=== PATIENT | female | born 1935 | race Caucasian/White ===

== ENCOUNTER 2017-02-01 08:13 | Inpatient (IN) ==
--- NOTE | 2017-02-01 08:43 | PROVIDER DOCUMENTATION ---
HPI-General Adult - General Stated Complaint: difficult breathing/cp Time Seen by Provider: 02/01/17 08:30 Source: patient, family Allergies/Adverse Reactions: Patient Allergies Allergy/AdvReac Type Severity Reaction Status Date / Time propofol Allergy Severe Unknown Verified 01/31/17 15:48 Home Medications: Home Medication List Medication Instructions Recorded Confirmed Last Taken Type Digoxin [Lanoxin] 125 microgm PO DAILY 01/23/13 01/31/17 01/31/17 08:30 History Insulin Lispro [Humalog] 1 unit SUBQ TID 01/23/13 01/31/17 01/31/17 08:30 History Levothyroxine [Synthroid] 125 microgm PO DAILY 01/23/13 01/31/17 01/31/17 08:30 History Potassium Chloride [Klor-Con M20] 20 meq PO DAILY 01/23/13 01/31/17 01/31/17 08: 30 History Aspirin 81 mg PO DAILY 02/22/13 01/31/17 01/31/17 08:30 History Losartan [Cozaar] 100 mg PO DAILY 02/22/13 01/31/17 01/31/17 08:30 History Warfarin [Coumadin] 4 mg PO QHS 02/22/13 01/31/17 01/30/17 21:30 History Mirtazapine [Remeron] 15 mg PO QHS 04/18/13 01/31/17 01/30/17 21:30 History Metoprolol [Lopressor] 100 mg PO DAILY 09/26/14 01/31/17 01/31/17 08:30 History Insulin Degludec [Tresiba 40 unit SQ HS 09/27/16 01/31/17 01/30/17 21:30 History Flextouch U-100] ROSUVAstatin [Crestor] 40 mg PO HS 10/05/16 01/31/17 01/30/17 21:30 History Furosemide [Lasix] 40 mg PO DAILY #0 tablet 10/09/16 01/31/17 01/31/17 08:30 Rx Alprazolam [Xanax] 0.25 mg PO [id number] 01/29/17 01/31/17 01/31/17 08:30 History Nitrofurantoin Monohyd/M-Cryst 100 mg PO BID #20 capsule 01/29/17 01/31/1701/31 08:30 Rx [Macrobid 100 mg Capsule] - History of Present Illness -Gen Adult Nature of Presenting Problems: presents with c/ feeling anxious, unable to rest. She was up and down all night , did not sleep. EMS was called for that. She had brief CP and SOB in the ambulance, but this has resolved Pt was seen here yest for anxiety, CP, was eval , and referred back to her PCP. She was also seen here Wednesday for similar. She was recently taken off her zoloft, and told to take prn Xanax Location of Pain/Injury: reports: none Pain Radiation: reports: no radiation Quality of Pain: reports: none Onset/Duration: reports: 24 hours ago Timing: reports: still present Context/Activities at Onset: reports: none Modifying Factors: improves with: nothing Associated Symptoms: reports: shortness of breath (see HPI). denies: fever/ chills Similar Symptoms Previously?: Yes Recently seen or treated by another doctor?: Yes Review of Systems - Adult - REVIEW OF SYSTEMS - ADULT Constitutional: reports: see HPI Eyes: reports: no symptoms reported Ears, Nose, Mouth & Throat: reports: no symptoms reported Cardiovascular: reports: see HPI, palpitations (occ) Respiratory: reports: see HPI Gastrointestinal: reports: no symptoms reported Genitourinary: reports: no symptoms reported Musculoskeletal: reports: no symptoms reported Integumentary: reports: no symptoms reported Neurological: reports: no symptoms reported Psychiatric: reports: see HPI Endocrine: reports: no symptoms reported Hematologic/Lymphatic: reports: no symptoms reported Allergic/Immunologic: reports: no symptoms reported Past History - Adult - PAST MEDICAL HISTORY-ADULT Review of Records: reports: Medications Reviewed Major Childhood Illnesses: reports: denies history Cardiovascular: reports: CAD, CHF, HTN, heart valve problem (aortic valve replacement), hyperlipidemia, pacemaker Respiratory: reports: denies history Gastrointestinal: reports: denies history Obstetrical/Gynecological: reports: denies history Genitourinary: reports: denies history Musculoskeletal: reports: denies history Neurological: reports: CVA Psychiatric: reports: depression Endocrine/Immune: reports: Diabetes, thyroid disorder (hypothyroid) Other Conditions: reports: denies history - PRIOR SURGERIES/PROCEDURES Surgical/Procedure History: reports: CABG, tonsillectomy, orthopedic (extremity ) (bilateral hip) - IMMUNIZATION STATUS Childhood Immunizations: See Nurse Assessment Flu Vaccine: See Nurse Assessment - FAMILY HISTORY Family History: reviewed, not pertinent - SOCIAL HISTORY Smoking: denies Physical Exam-General - PHYSICAL EXAM-ADULT Initial Vital Signs Reviewed: Yes - CONSTITUTIONAL General Appearance: appears well, alert, no apparent distress, anxious - EYES Eyes: PERRL/EOMI, pink conjunctivae - HEAD, EARS, NOSE, MOUTH & THROAT HENMT: normocephalic/atraumatic, moist mucous membranes, normal ENT inspection, pharynx normal - NECK Neck: full range of motion, supple - RESPIRATORY Respiratory: chest non-tender, lungs clear, normal breath sounds, no respiratory distress, no accessory muscle use - CARDIOVASCULAR Cardiovascular: normal peripheral pulses, regular rate, rhythm, no edema - GASTROINTESTINAL (ABDOMEN) Abdominal Exam: non tender, soft - MUSCULOSKELETAL Back Exam: normal inspection, no CVA tenderness, no vertebral tenderness Extremity: normal range of motion, non-tender, normal inspection Peripheral Pulses: radial (R): 4+, radial (L): 4+ - SKIN Integumentary: normal color, normal turgor, warm/dry - NEUROLOGIC Neurologic: director safety council II-XII nml as tested, grossly normal, no motor/sensory deficits - PSYCHIATRIC Psych/Mental Status: oriented x 3, anxious Progress - PLAN OF CARE/RESULTS Progress/Plan/Lab Results: Orders Category Date Time Status EKG [EKG] Stat Ther 02/01/17 08:36 Ordered - CONSULTS/PCP/HOSPITALIST Notification #1 *Consult/PCP/Hospitalist*: Weirich Time Discussed: 08:43 Consult Disposition: Will see in ED, Admit Departure - Departure Time of Disposition Decision: 08:46 DIAGNOSIS: Anxiety about health Disposition: ADMITTED INPATIENT 09 Certified Medical Emergency: Emergent Condition: Good - Critical Care Note This patient required my direct & personal management of CC.: No
[2017-02-01 09:00] LABS: MANUAL DIFF NEEDED? NO
[2017-02-01 09:09] LABS: BASO% 0.3 % (0.0-0.8); EOS# 0.05 X1000 (0.0-0.7); EOS% 0.4 % (0.0-10.0); HEMATOCRIT 34.3 % (37.0-47.0); HEMOGLOBIN 10.7 g/dL (12.0-16.0); IMM GRAN# 0.03 X1000 (0.0-0.04); IMM GRAN% 0.2 % (0.0-0.5); LYMPH# 0.84 X1000 (1.2-3.4); LYMPH% 6.6 % (20.5-51.1); MCHC 31.2 g/dL (33-37); MCV 83.3 FL (81-99); MONO# 1.08 X1000 (0.11-0.59); MONO% 8.5 % (1.7-9.3); MPV 12.5 FL (7.4-10.4); PLT 198 X1000 (130-400); RBC 4.12 XMIL (4.2-5.4)
[2017-02-01 09:17] LABS: PTT 39.8 Seconds (22.0-36.0)
[2017-02-01] MEDS ORDERED: XANAX XR PO ONE (09:17)
[2017-02-01] MEDS ORDERED: ZOLOFT PO ONE (09:17)
[2017-02-01 09:18] LABS: INR 2.54; PROTIME 28.3 Seconds (9.2-11.7)
[2017-02-01 09:21] LABS: CALCIUM 9.6 mg/dL (8.8-10.2); MAGNESIUM 1.9 mg/dL (1.5-2.7); POTASSIUM 4.7 mmol/L (3.5-5.1); TOTAL BILIRUBIN 0.62 mg/dL (0.20-1.00); TOTAL PROTEIN 7.9 g/dL (6.3-8.3)
--- NOTE | 2017-02-01 09:46 | EKG Report ---
Test Performed on : 02/01/2017 08:18:46 AM Test Reason : CP Blood Pressure : / mmHG Vent. Rate : 089 BPM Atrial Rate : 089 BPM P-R Int : 000 ms QRS Dur : 142 ms QT Int : 380 ms P-R-T Axes : 000 018 197 degrees QTc Int : 462 ms Ventricular-paced rhythm Abnormal ECG When compared with ECG of 28-OCT-2016 13:35, No significant change was found Unconfirmed Result
[2017-02-01] MEDS ORDERED: NS 1,000 ML IV ONE ×2 (10:50)
[2017-02-01] MEDS ORDERED: TYLENOL PO PRN (10:50)
[2017-02-01] MEDS ORDERED: ZOFRAN IV PRN (10:50)
[2017-02-01] MEDS: ROCEPHIN 1 GM/NS 1 GM/50 ML IVPB IV SCH (15:50)
--- NOTE | 2017-02-01 16:00 | EKG Report ---
Test Performed on : 02/01/2017 1:52:32 PM Test Reason : chest pain Blood Pressure : / mmHG Vent. Rate : 096 BPM Atrial Rate : 096 BPM P-R Int : 000 ms QRS Dur : 158 ms QT Int : 402 ms P-R-T Axes : 000 217 065 degrees QTc Int : 507 ms Ventricular-paced rhythm Biventricular pacemaker detected Abnormal ECG When compared with ECG of 01-FEB-2017 08:18, (Unconfirmed) Vent. rate has increased BY 7 BPM Confirmed by Mary SCHROEDER, Candido Hill ([id number]) on 02/03/2017 7:15:47 AM
[2017-02-01 16:35] LABS: ALLEN TEST YES; BE 0.9 mmoll (-3.0-3.0); BLOOD TYPE ARTERIAL; DRAW SITE R RADIAL; METHB 1.3 % (0.0-1.5); O2(CT) 14.6 mL/dL (15.0-23.0); PCO2(98.6) 46 mmHg (35-45); PO2(98.6) 84 mmHg (60-100); SAMPLE BLOOD; SAO2 98.1 % (95.0-100.0); THB 10.9 g/dL (11.5-17.4); pH(98.6) 7.37 (7.35-7.45)
[2017-02-01 16:36] LABS: MODALITY CANNULA
[2017-02-01] MEDS ORDERED: NS 1,000 ML ONE (16:46)
--- NOTE | 2017-02-01 17:31 | HISTORY AND PHYSICAL ---
CHIEF COMPLAINT: Chest pain. HISTORY OF PRESENT ILLNESS: This 81-year-old white female was seen in the office last week. She appeared to be oversedated and as a result, we removed a couple medications which we were using for emotional control. She has a history of pseudobulbar affect and as a result of chronically declining health she has become more and more anxious over time. We have clear documentation of her hyperventilating in the past as a result of her anxiety but felt we overshot the sandra with the medications. Over the weekend the patient was seen in the emergency room twice having called the ambulance due to shortness of breath and chest pain. She was evaluated in the emergency room twice and found to have no evidence of myocardial ischemia. She was diagnosed with acute anxiety and was sent home. She again returns today with chest pain, shortness of breath, crying spells, emotional lability and other more or less chronic issues. She is admitted for adjustment of her medication regimen. During 1 of her ER visits (this is the 3rd in less than a week) the patient was diagnosed with a UTI and started on medications for this. There has been no growth in that culture obtained on 01/29. PAST MEDICAL HISTORY: 1. Hypertension. 2. Class 4 congestive heart failure with preserved ejection fraction. 3. Chronic stable ischemic heart disease. 4. Pacemaker dependent history of atrial fibrillation. 5. History of aortic valve replacement. 6. Diabetes type 2. 7. Hypertension. 8. Hyperlipidemia. 9. Hypothyroidism. 10. History of CVA with pseudobulbar affect. 11. The patient has a history of 2 very intense prolonged hospitalizations for myocardial ischemia and mental status alteration. FAMILY HISTORY: Noncontributory. SOCIAL HISTORY: The patient is and lives with her . Unfortunately, he is chronically ill with pulmonary fibrosis and has a more and more difficult time managing her as time goes on. She does not use alcohol or tobacco. ALLERGIES: Propofol. REVIEW OF SYSTEMS: In speaking with the patient and her , he encouraged her to take alprazolam p.r.n. at home and she fought him at every turn in trying to take this. He states that she has been hallucinating at times. He states that she has had no other complaints, that her eating and drinking has been off for several days. They had given very little if any sliding scale insulin over that timeframe. He does not recall any fever or chills. There has not been overt shortness of breath except intermittently and usually accompanied by her being in a frantic state and her heart racing at that time. She states that she has chest pain off and on all of time. There were no GI complaints. There were no complaints. There were no other neurological issues other than the manifestations of pseudobulbar affect which are common with her and of late been more or less uncontrolled. PHYSICAL EXAMINATION: GENERAL: She is a well-developed, well-nourished, white female who is in no acute distress. She is not breathing rapidly at the time of my examination. She does make some statements which are not completely inappropriate but very much off the subject at times. HEENT: The sclerae are anicteric. Oral mucosa is dry but not parched. It is of normal coloration. NECK: There is no JVD present. LUNGS: The patient is generally clear. CARDIOVASCULAR: The patient is in a regular rhythm. There is no appreciable murmur or gallop. EXTREMITIES: No peripheral edema. ABDOMEN: Bowel sounds are present. She is nontender and nondistended. NEUROLOGIC: Cranial nerves appear to be intact. There do not appear to be any focal motor neurological deficits as she is moving her arms freely. ASSESSMENT AND PLAN: 1. I plan to reconfigured the patient's medications to better control her pseudobulbar affect and anxiety. I believe that this is primary driving factor behind her difficulty. We may just have to live with relative oversedation if that is what takes to keep her calm. 2. The patient's ischemic heart disease is known. We will continue to follow this. Labs were drawn on each of the hospitalizations and have again been drawn today to detect any evidence of myocardial ischemia. 3. Hypertension. We are aware. Will continue to monitor this. 4. Diabetes mellitus. We will do fingerstick blood sugars and continue the patient's Tresiba dose. We will add sliding scale insulin and try configure this to optimize her blood sugar control. 5. The patient has a history of diagnosed urinary tract infection although the culture was negative. I will plan to give her Rocephin until we can show that she has no other evidence of infection. cc: Candido Hernandez MD
[2017-02-01] MEDS ORDERED: ATIVAN IV PRN (18:41)
[2017-02-01] MEDS: HUMULIN R SUBQ SCH ×2 (18:56→20:51)
[2017-02-01] MEDS ORDERED: REMERON PO SCH (21:00)
[2017-02-01] MEDS ORDERED: LASIX IV ONE (21:29)
[2017-02-01] MEDS ORDERED: NITROGLYCERIN TOP ONE (21:29)
[2017-02-01] MEDS: MACROBID PO SCH (22:24)
[2017-02-01] MEDS: CRESTOR PO SCH (22:24)
[2017-02-01] MEDS: COUMADIN PO SCH (22:24)
[2017-02-01] MEDS: NON-FORMULARY BULK MED SUBQ SCH (22:29)
--- NOTE | 2017-02-02 01:14 | PROGRESS NOTE ---
DATE: 02/01/2017 HISTORY: Called in to see patient. Reported that she did not look very good, was not breathing very good. This is 8:30 p.m. An 81-year-old admitted apparently this morning by Dr. Hernandez. An 80-year-old discharged from the hospital back in 10/14/2016. She has been in the hospital a couple times recently for that. She was in the hospital on 09/30/2016. She had a heart catheterization. The previous episode she was short of breath, could hardly catch her breath, could hardly talk at that time. This time, she came in apparently with shortness of breath again and gasping to move air, marked dyspnea on exertion. PAST MEDICAL HISTORY: 1. Diabetes mellitus type 2. 2. Hypertension. 3. Hyperlipidemia. 4. Hypothyroidism. 5. Class IV congestive heart failure, with relatively preserved ejection fraction, I think ejection fraction around 40%. 6. Chronic, stable ischemic heart disease. She had a 3-vessel disease. 7. Pacemaker-dependent and history of atrial fibrillation. 8. Aortic valve replacement. She is on Coumadin. PHYSICAL EXAMINATION: Patient is labored to breathe, and there is a prolonged expiratory phase. Neck veins are distended. Difficult to hear the bases, but it sounds like rales in the bases. Abdomen is soft. Skin is warm and dry. LABORATORY STUDIES: On admission, white count 12,720, hematocrit 34, platelet count 198,000. Sodium 139, potassium 4.7, chloride 103, bicarb 24, BUN 21, creatinine 1.1. Blood sugars 228, and then 428. ProBNP 3207. EKG: There are 2 of them, both of them show biventricular paced rhythm. VITAL SIGNS: Blood pressure most recent was 125/77, but it has been 125-178 over 54-77. ASSESSMENT AND PLAN: 1. Increased work of breathing, diastolic heart failure, and systolic. ProBNP is not dramatically elevated. Clinically, appears to be having trouble moving air. I am going to move her to the unit. We will check some blood gases. We will give her a dose of Lasix. I will put an inch of nitro paste on her chest. 2. Three-vessel disease. Obviously, this could be ischemia, and it could be a supply-demand ischemia. Her troponin was less than 0.01. CPK was 30. 3. Patient with chronic renal insufficiency, aware. Appears to be stable as well. 4. Diabetes mellitus type 2. Sugars are bouncing around. We will keep her on a sliding scale. 5. I am going to check some blood gases. Her chest x-ray done yesterday showed a stable chest. Will have them repeat another chest x-ray portable. Will put an inch of nitro paste. Give her Lasix 40 mg, keep fluid at the same, and move her to the unit. 6. She is a full code. cc: MD Candido Victoria MD
--- NOTE | 2017-02-02 05:14 | EKG Report ---
Test Performed on : 02/01/2017 7:43:34 PM Test Reason : HR 120's on tele Blood Pressure : / mmHG Vent. Rate : 132 BPM Atrial Rate : 133 BPM P-R Int : 000 ms QRS Dur : 134 ms QT Int : 342 ms P-R-T Axes : 000 038 213 degrees QTc Int : 506 ms Ventricular-paced rhythm Abnormal ECG When compared with ECG of 01-FEB-2017 13:52, (Unconfirmed) Vent. rate has increased BY 36 BPM Confirmed by Candido Hernandez MD ([id number]) on 02/03/2017 7:16:02 AM
--- NOTE | 2017-02-02 06:20 | Diag Imaging Result Doc PS360 ---
EXAM: CHEST-PORTABLE HISTORY: SOB/CP TECHNIQUE: Portable COMPARISON: 01/31/2017. FINDINGS: Sternal wires are present. There is a left-sided pacemaker. The heart remains mildly prominent. Pulmonary edema has developed. No pleural effusions identified. IMPRESSION: Interval development of pulmonary edema. Electronically signed by Bernardino Gottlieb 02/02/2017 6:18 AM
[2017-02-02] MEDS: SYNTHROID PO SCH (06:25)
[2017-02-02] MEDS: HUMULIN R SUBQ SCH ×4 (06:26→21:49)
[2017-02-02] MEDS ORDERED: ZOLOFT PO SCH (09:00)
[2017-02-02] MEDS ORDERED: XANAX XR PO SCH (09:00)
[2017-02-02] MEDS ORDERED: LOPRESSOR PO SCH (09:00)
[2017-02-02] MEDS: LASIX PO SCH (09:07)
[2017-02-02] MEDS: COZAAR PO SCH (09:07)
[2017-02-02] MEDS: LANOXIN PO SCH (09:08)
[2017-02-02] MEDS: ASPIRIN PO SCH (09:08)
[2017-02-02] MEDS: KLOR-CON PO SCH (09:08)
[2017-02-02] MEDS: MACROBID PO SCH ×2 (09:12→21:46)
--- NOTE | 2017-02-02 09:46 | PROGRESS NOTE ---
DATE: 02/02/2017 SUBJECTIVE: The patient was moved to [facility] last night due to shortness of breath. She was given some nitro paste and some Lasix. This morning, the patient states that as soon as she moves, the shortness of breath starts all over again. At the time that she was telling me this, we were moving her about in the bed, and she did not seem overtly short of breath. Yesterday, when she was a little more short of breath, we got an ABG which did not show primary hyperventilation. It is noted that the patient did have some Ativan last night around 6:00 p.m. OBJECTIVE: Vital Signs: Temperature 97.2, pulse 66, respirations 16, BP 136/55. She is 100% saturated on what appears to be 4 L nasal cannula.Physical Examination: The patient is alert but confused. She seems to get disoriented during hospitalizations and, from past experience, this is about her baseline. Lungs are clear. Cardiovascular is regular at approximately 60 beats per minute at the time of my examination. Extremities show no peripheral edema. Oral mucosa is slightly dry. LABORATORIES: None. ASSESSMENT AND PLAN: 1. The patient's difficulties with heart disease, I think, are behind some of her shortness of breath. I think she has anginal equivalents and shortness of breath with exertion which are part of her class 4 heart failure with preserved systolic function. We will continue to try and optimize her medications so she can perform a little bit better. 2. The other grave issue which affects the patient is extreme anxiety and pseudobulbar affect. The addition of alprazolam XR has calmed her down, but she does seem to think and operate slower when she is taking now. Unfortunately, when we loosen the reins by giving her any other medication or discontinuing the benzodiazepines, she has severe panic attacks and anxiety. I think she is going to be better served in long-term with the long-acting alprazolam XR and the remainder of her antidepressant/anxiety medications. 3. The patient's diabetes is out of control. She had a fairly stringent sliding-scale Humalog which would venture upwards of 15-20 units with each meal. We have continued her Tarceva, and I put her on a high dose sliding scale so that we can get a better quantization of the amount of insulin she is requiring. 4. We will consider the use of physical therapy. 5. I have discontinued the patient's topical nitroglycerin and added her Imdur 30 mg per day. We will see how this affects her blood pressure and her overall cardiovascular status. I have also reintroduce the patient's Lasix on a daily basis. cc: Candido Hernandez MD
[2017-02-02] MEDS: ROCEPHIN 1 GM/NS 1 GM/50 ML IVPB IV SCH (11:17)
[2017-02-02] MEDS: IMDUR PO SCH (11:18)
[2017-02-02] MEDS: COUMADIN PO SCH (21:46)
[2017-02-02] MEDS: LOPRESSOR PO SCH (21:46)
[2017-02-02] MEDS: CRESTOR PO SCH (21:46)
[2017-02-02] MEDS: ZOLOFT PO SCH (21:46)
[2017-02-02] MEDS: NON-FORMULARY BULK MED SUBQ SCH (21:50)
[2017-02-03] MEDS: REMERON PO SCH ×2 (00:03→21:45)
[2017-02-03] MEDS: SYNTHROID PO SCH (06:52)
[2017-02-03] MEDS: HUMULIN R SUBQ SCH ×4 (06:52→21:48)
[2017-02-03] MEDS ORDERED: VALIUM PO SCH (09:00)
[2017-02-03] MEDS ORDERED: GEODON IM PRN (09:20)
[2017-02-03] MEDS ORDERED: STERILE WATER INJ. INJ PRN (09:20)
[2017-02-03] MEDS: COZAAR PO SCH (10:31)
[2017-02-03] MEDS: LOPRESSOR PO SCH ×2 (10:32→21:45)
[2017-02-03] MEDS: LASIX PO SCH (10:32)
[2017-02-03] MEDS: IMDUR PO SCH (10:32)
[2017-02-03] MEDS: LANOXIN PO SCH (10:32)
[2017-02-03] MEDS: KLOR-CON PO SCH (10:33)
[2017-02-03] MEDS: ASPIRIN PO SCH (10:33)
--- NOTE | 2017-02-03 16:13 | PROGRESS NOTE ---
DATE: 02/03/2017 SUBJECTIVE: The patient is lying in the bed this morning with eyes open. She is alert and conversive but she is babbling rather incoherently. Her is at the bedside and said that she apparently was fairly lucid and oriented last night but was agitated all night and got some Ativan. He says she has been out of it since then. She has not had any episodic shortness of breath. OBJECTIVE: Vital Signs: Temperature 98.2, pulse 70, respiratory rate 16, blood pressure 155/51. Fluid balance appears to be negative 160. Yesterday she was reportedly ate bites only but today supposedly 100%. She did have a bowel movement today. Lungs: Clear. Cardiovascular: Regular. Extremities: Show no edema. Neurologic: The patient is alert but not oriented, and although conversive and fluent, generally what she talks about makes no sense. LABORATORIES: None. ASSESSMENT AND PLAN: 1. The patient's congestive heart failure and ischemic disease is stable. 2. The patient's mental status is in continue flux. I have eliminated several medications and reduced others in an effort to find a rather magical spot where she is not anxious but not overly sedated. On past hospitalizations she has had similar episodes of complete disorientation which were rather inexplicable. We will continue to work with her, and her is aware that this will be a delicate balancing act that will take some time. 3. Diabetes. After moving to a higher dose of sliding scale the patient's blood sugars are under better control and her insulin dosages seem appropriate. 4. Hypertension is well controlled. cc: Candido Hernandez MD
[2017-02-03] MEDS: CRESTOR PO SCH (21:45)
[2017-02-03] MEDS: ZOLOFT PO SCH (21:46)
[2017-02-03] MEDS: COUMADIN PO SCH (21:46)
[2017-02-03] MEDS: NON-FORMULARY BULK MED SUBQ SCH (21:54)
[2017-02-04 05:08] LABS: MANUAL DIFF NEEDED? NO
[2017-02-04 05:26] LABS: BASO% 0.8 % (0.0-0.8); EOS# 0.32 X1000 (0.0-0.7); EOS% 4.1 % (0.0-10.0); HEMATOCRIT 32.4 % (37.0-47.0); LYMPH# 1.07 X1000 (1.2-3.4); LYMPH% 13.6 % (20.5-51.1); MCH 25.8 PG (27-31); MCHC 30.9 g/dL (33-37); MCV 83.7 FL (81-99); MONO# 0.76 X1000 (0.11-0.59); MONO% 9.7 % (1.7-9.3); MPV 12.7 FL (7.4-10.4); NEUT% 71.8 % (42.2-75.2); PLT 233 X1000 (130-400); RBC 3.87 XMIL (4.2-5.4)
[2017-02-04 05:47] LABS: CALCIUM 9.6 mg/dL (8.8-10.2); POTASSIUM 4.2 mmol/L (3.5-5.1)
[2017-02-04] MEDS: SYNTHROID PO SCH (06:45)
[2017-02-04] MEDS: HUMULIN R SUBQ SCH ×4 (06:45→19:58)
[2017-02-04] MEDS: KLOR-CON PO SCH (08:54)
[2017-02-04] MEDS: LASIX PO SCH (08:54)
[2017-02-04] MEDS: ASPIRIN PO SCH (08:54)
[2017-02-04] MEDS: LOPRESSOR PO SCH ×2 (08:54→19:56)
[2017-02-04] MEDS: LANOXIN PO SCH (08:55)
[2017-02-04] MEDS: IMDUR PO SCH (08:58)
[2017-02-04] MEDS: COZAAR PO SCH (08:58)
--- NOTE | 2017-02-04 09:09 | PROGRESS NOTE ---
DATE: 02/04/2017 SUBJECTIVE: I arrived at the same time as the patient's . The patient was partially recumbent in the bed. She was awake and alert. She tried to express some type of concern she had for her house, but none of it really made any sense. She did respond appropriately to questions, but when she tried to formulate thoughts of her own, they generally were somewhat confused or wandering in nature. OBJECTIVE: Vital Signs: 97.8, 71, 70/61, 100% saturated by nasal cannula. Fluid balance is negative 460. Lungs: On physical exam, the patient's lungs are clear. Cardiovascular: Regular. Neurologic: The patient is confused. She said that she "cried all night." LABORATORY: White cell count 7.8, hematocrit 32. BUN 23, creatinine 0.9. It is noted the patient had a low sugar 55 yesterday at approximately 3 p.m. This is likely due to relatively poor p.o. intake. ASSESSMENT AND PLAN: 1. Patient's mental status is still questionable. At the present time, she is having no sedatives. She continues on her antidepressants. She also has had no anxiolytics for over 24 hours, and her sensorium does seem to be clearing somewhat. This is not dissimilar to previous hospitalizations with her. 2. The patient's congestive failure and ischemic disease seem to be stabilized. I am surprised that her blood pressure is as high that it is since we have increased several medications and added one which should lower her blood pressure even further. She is not struggling to breathe at the present time. 3. Diabetes has come under better control, but I am afraid this may be due to relatively poor oral intake at times and not due to sliding scale. We will continue to follow this. 4. I plan to implement physical therapy today and try and get the patient up in the chair a few times daily. 5. I think the patient needs to continue on CICU because of her mental status. She requires a higher level of nursing care than would be given on the floor. cc: Candido Hernandez MD
[2017-02-04] MEDS: ROBITUSSIN-DM PO SCH ×3 (09:54→17:31)
[2017-02-04] MEDS: CRESTOR PO SCH (19:56)
[2017-02-04] MEDS: ZOLOFT PO SCH (19:56)
[2017-02-04] MEDS: COUMADIN PO SCH (19:56)
[2017-02-04] MEDS: REMERON PO SCH (19:57)
[2017-02-04] MEDS: NON-FORMULARY BULK MED SUBQ SCH (19:57)
[2017-02-05] MEDS: NON-FORMULARY BULK MED SUBQ SCH ×2 (01:26→21:56)
[2017-02-05] MEDS: COUMADIN PO SCH ×2 (01:26→21:38)
[2017-02-05] MEDS: ZOLOFT PO SCH ×2 (01:26→21:38)
[2017-02-05] MEDS: REMERON PO SCH ×2 (01:26→21:38)
[2017-02-05] MEDS: CRESTOR PO SCH ×2 (01:27→21:36)
[2017-02-05] MEDS: HUMULIN R SUBQ SCH ×5 (01:27→21:40)
[2017-02-05] MEDS: LOPRESSOR PO SCH ×3 (01:27→21:38)
[2017-02-05] MEDS: SYNTHROID PO SCH (06:20)
[2017-02-05] MEDS: LASIX PO SCH (09:56)
[2017-02-05] MEDS: LANOXIN PO SCH (09:57)
[2017-02-05] MEDS: IMDUR PO SCH (09:57)
[2017-02-05] MEDS: KLOR-CON PO SCH (09:57)
[2017-02-05] MEDS: ROBITUSSIN-DM PO SCH ×3 (09:57→16:24)
[2017-02-05] MEDS: COZAAR PO SCH (09:57)
[2017-02-05] MEDS: ASPIRIN PO SCH (09:57)
--- NOTE | 2017-02-05 11:20 | PROGRESS NOTE ---
DATE: 02/05/2017 SUBJECTIVE: The patient is awake, alert, conversant and appropriate in the bed. She is there with her . She apparently called her last night at 3 a.m. and asked that he come back to the hospital. She apparently was crying, but has no real memory of what the problem was. OBJECTIVE: Vital Signs: 98.2, 118, 176/53. General: On physical exam, in general she is a well- developed, well-nourished, white female. She is alert, conversant and generally appropriate. Her speech is fluent. Extremities: No peripheral edema. LABORATORY: None was drawn today. Blood sugars are high on fingerstick. ASSESSMENT AND PLAN: 1. The patient's mental status has improved somewhat. She has not had any type of sedative medications in over 36 hours. She still may require some mild sedation at night, which we will try tonight to see if it will calm her down and allow her to sleep. 2. The patient's states that she did not get out of bed yesterday. According to the physical therapy notes, she did get up and was able to ambulate with a walker with minimal assist. She states that she was not put in a chair for meals though; hopefully we can correct that today. 3. Atrial fibrillation is stable. 4. Diabetes mellitus. The patient's sugar is higher today than it has been. I think she is eating a little bit better. 5. Overall disposition will be back to home. The only limitations or obstructions to her discharge are whether her mobility will suffice for home care and whether her level of anxiety, and the affects of her pseudobulbar affect can be improved with medication. She is otherwise stable from a cardiovascular standpoint. cc: Candido Hernandez MD
[2017-02-05] MEDS ORDERED: GEODON IM ONE (16:00)
[2017-02-05] MEDS ORDERED: STERILE WATER INJ. INJ ONE (16:00)
--- NOTE | 2017-02-05 16:45 | Diag Imaging Result Doc PS360 ---
HEAD W/O CONTRAST - 02/05/2017 INDICATION: mental status change TECHNIQUE: A CT dose reduction protocol was used. COMPARISON: 01/07/2013 FINDINGS: There is stable diffuse atrophy. There are stable multifocal hypodensities in the superior left cerebral hemisphere compatible with old infarctions. No intracranial mass or hemorrhage. There is extremely severe vascular calcification of the carotid siphons bilaterally compatible with vascular disease. The skull is intact. The sinuses, mastoids, and middle ears are clear. IMPRESSION: Stable advanced chronic changes of the brain. Electronically signed by Teo Zurita 02/05/2017 4:42 PM
[2017-02-06] MEDS: HUMULIN R SUBQ SCH ×4 (06:38→22:50)
[2017-02-06] MEDS ORDERED: STERILE WATER INJ. INJ PRN (09:24)
[2017-02-06] MEDS ORDERED: GEODON IM PRN (09:24)
[2017-02-06] MEDS: LANOXIN PO SCH (10:08)
[2017-02-06] MEDS: COZAAR PO SCH (10:08)
[2017-02-06] MEDS: ROBITUSSIN-DM PO SCH ×3 (10:09→16:39)
[2017-02-06] MEDS: LASIX PO SCH (10:09)
[2017-02-06] MEDS: SYNTHROID PO SCH (10:09)
[2017-02-06] MEDS: LOPRESSOR PO SCH ×3 (10:09→22:17)
[2017-02-06] MEDS: ASPIRIN PO SCH (10:09)
[2017-02-06] MEDS: KLOR-CON PO SCH (10:09)
[2017-02-06] MEDS: IMDUR PO SCH (10:09)
--- NOTE | 2017-02-06 10:11 | PROGRESS NOTE ---
DATE: 02/06/2017 SUBJECTIVE: The patient had a reasonably good night last night. Yesterday during the afternoon, I was called with her being agitated, yelling and screaming and carrying on unreasonably. We gave her some Geodon which calmed her down but this has eventually over sedated her, although it did result in a good night's sleep. The patient's stated that she was still having some paranoid thoughts about people invading her house and other unreasonable commentary. We discussed changes in medication and we decided to add another agent at night hopefully to help with her paranoia and such. OBJECTIVE: Vital Signs: 98, 69, 17, 156/48. General: Patient is alert, conversive, generally appropriate. I think she is oriented to time and place. Lungs: Clear. Cardiovascular: Regular. Extremities: Show no peripheral edema. LABORATORIES: Blood sugars are highly variable. ASSESSMENT AND PLAN: 1. We will plan to add 0.5 mg of Risperdal at night to the patient's 2 mg of Valium and hopefully this will keep her calm through the night so she can sleep. We have p.r.n. Geodon for any outbursts but this seemed to over sedate her eventually yesterday. So, we are going to try and avoid that. The patient is on a complex regimen for her mood issues, paranoia and pseudobulbar affect. I told her that if we can get her in a little more stable place that I will be happy to send her home, but I am afraid that with her emotional liability, she would end up back to the emergency room almost immediately at the 1st outburst. She is generally inconsolable during these times and will refuse medication. 2. The patient's atrial fibrillation and congestive failure are stable. She is roughly euvolemic and not struggling to breathe at all. 3. Diabetes shows highly variable numbers, but no extreme lows and only a few postprandial highs. We will continue the same regimen. 4. Hypertension. The patient has a wide pulse pressure and I believe this is about as low of a blood pressure that she will tolerate. I do not plan to make any other changes in her medication regimen. 5. Through the remainder of the weekend, Dr. Rose and Dr. Gomez are covering. cc: Candido Hernandez MD
[2017-02-06] MEDS ORDERED: INSULIN PEN NEEDLES ONE (19:11)
[2017-02-06] MEDS: COUMADIN PO SCH ×2 (19:27→22:16)
[2017-02-06] MEDS: REMERON PO SCH ×2 (19:29→22:18)
[2017-02-06] MEDS: CRESTOR PO SCH ×2 (19:29→22:16)
[2017-02-06] MEDS: RISPERDAL PO SCH ×2 (19:30→22:18)
[2017-02-06] MEDS: ZOLOFT PO SCH ×2 (19:30→22:17)
[2017-02-06] MEDS: VALIUM PO SCH ×2 (19:30→22:17)
[2017-02-06] MEDS: NON-FORMULARY BULK MED SUBQ SCH ×2 (19:30→22:18)
[2017-02-07] MEDS: SYNTHROID PO SCH ×2 (05:42→07:11)
[2017-02-07] MEDS: HUMULIN R SUBQ SCH ×2 (07:11→11:38)
[2017-02-07] MEDS: IMDUR PO SCH (09:40)
[2017-02-07] MEDS: KLOR-CON PO SCH (09:40)
[2017-02-07] MEDS: COZAAR PO SCH (09:40)
[2017-02-07] MEDS: LANOXIN PO SCH (09:40)
[2017-02-07] MEDS: LASIX PO SCH (09:40)
[2017-02-07] MEDS: LOPRESSOR PO SCH (09:40)
[2017-02-07] MEDS: ASPIRIN PO SCH (09:40)
[2017-02-07] MEDS: ROBITUSSIN-DM PO SCH (09:41)
[2017-02-07 11:55] VITALS: BP 111/54
--- NOTE | 2017-02-08 07:22 | DISCHARGE SUMMARY ---
ADMISSION DATE: 02/01/2017 DISCHARGE DATE: 02/07/2017 DISCHARGE DIAGNOSES: 1. Shortness of breath. 2. Chest pain. 3. Ischemic heart disease. 4. Congestive heart failure. 5. Status aortic valve. 6. Moderate vascular dementia. 7. Pseudobulbar affect. 8. Diabetes mellitus, poorly controlled. HOSPITAL COURSE: This is an 81-year-old, white female with a host of medical problems. She has had multiple visits to the ER in which she was markedly short of breath and completely overwrought and confused. The patient had been seen in the office prior to admission with similar problems and adjustments had been made in her medication regimen. At that time, in the office, she was oversedated during the day, although she was performing fairly well at night. We removed a medication and adjusted a few others. Unfortunately, she became completely unhinged at this point. The patient has known congestive heart failure which is very sensitive to fluid balance as well as chronic ischemic heart disease. She did have a recent workup by Dr. Leone at the [facility] which showed everything was working fine. Last year, she had a heart catheterization which showed moderate 3 vessel disease but no critical stenoses necessitating intervention. Over her hospitalization, the patient was diuresed very mildly which she tolerated well. We added Imdur for better anginal control and lowering of blood pressure. These seemed to work reasonably well. During the hospitalization, the patient had multiple outbursts of yelling and crying. These generally centered around when her left the hospital. He had to come back in the middle of night several times because she would call him on the phone, wailing about multiple things. She had some quite delusional thoughts about the hospital staff and things that were going on at her house. These were all completely false but she was convinced of their reality. It is interesting that during some of her prolonged hospitalizations in the past, she had the same level of disorientation which generally corrected itself at home. Multiple attempts at adjusting medication were made and finally settled on a slightly lower dose of Remeron as well as the reintroduction of sertraline with a tiny 2 mg Valium at night and the addition of 0.5 of Risperdal at night because some of her thought processes were somewhat paranoic. This seemed to work reasonably well and although the patient still would be intermittently confused during the day, there were no gross outbursts on the day prior to discharge. She was very desirous to get home. The patient's agreed that he would be able to handle her at home and the new medication regimen was explained to him. During the hospitalization, I did do a CT scan of her brain just to make sure there was no new infarct that could account for any of this. The CT scan was negative. Patient was discharged home in good condition. No changes were made in her diabetic regimen. We added Imdur 30 mg once daily for angina and blood pressure lowering. We reduced her mirtazapine to 7.5 mg at bedtime, added Valium 2 mg p.o. at bedtime, and Risperdal 0.5 mg p.o. at bedtime. We also reintroduced the sertraline 50 mg daily which she had been taking before. In addition, she had been taking metoprolol 100 mg once daily and we changed this to 50 mg twice daily to hopefully achieve a smoother her heart rate and blood pressure control. She is to follow up within 2 weeks in my office. cc: Candido Hernandez MD
== END 2017-02-07 14:50 | disposition home health service (06) ==
LOC: SUPCPDRO → ED 08:13 → 4N 11:13 → 3S 02-02 00:03
PROVIDERS: ADMIT Internal Medicine; ATTEND Internal Medicine